=== PATIENT | female | born 1980 | race American Indian/Alaskan Native ===

== ENCOUNTER 2017-03-13 20:07 | Inpatient (IN) | payer OTHER ==
--- NOTE | 2017-03-13 20:51 | ED PDOC ---
Arrival/HPI - General Chief Complaint: Weakness/Neurological Deficit Time Seen by Provider: 03/13/17 20:40 Historian: Patient - History of Present Illness Narrative History of Present Illness (Text): 03/13/17 20:48 36 y/o female, pmh including heavy menstrual period for 1 year/hypothyroidism, nkda, send in by the pmd Dr. Chen for hypothryoidism and symptomatic anemia. Pt. stated that she gets heavy period for the past 1 year, following up with the obgyn which suggest supportive treatment, on the iron supplement but not compliance, last period about several days with 7 days straight of menstrual period. Pt. stated that she feels fatigue/tired and very sleepy, pmd is concerning about the thyroid panel as well. Pt. has no chest pain or shortness of breath, no night sweat, no numbness or tingling, no other medical or psychological complaints. Past Medical History - Provider Review Nursing Documentation Reviewed: Yes - Past History Past History: No Previous - Infectious Disease Hx of Infectious Diseases: None - Past Medical History Past Medical History: No Previous - Cardiac Hx Cardiac Disorders: No - Pulmonary Hx Respiratory Disorders: No - Neurological Hx Neurological Disorder: No - HEENT Hx HEENT Disorder: No - Renal Hx Renal Disorder: No - Endocrine/Metabolic Hx Endocrine Disorders: Yes (GOITER) Hx Hypothyroidism: Yes - Hematological/Oncological Hx Blood Disorders: Yes Hx Anemia: Yes (IRON INFUSIONS) - Integumentary Hx Dermatological Disorder: No - Musculoskeletal/Rheumatological Hx Musculoskeletal Disorders: No Hx Falls: No - Gastrointestinal Hx Gastrointestinal Disorders: Yes (ENDOSCOPOY 5-93-12-GASTRIC EROSION-LOST 5 LBS WITHIN ONE MONTH) - Genitourinary/Gynecological Hx Genitourinary Disorders: No - Psychiatric Hx Psychophysiologic Disorder: No Hx Anxiety: No Hx Bipolar Disorder: No Hx Depression: No Hx Emotional Abuse: No Hx Hallucinations: No Hx Panic Disorder: No Hx Post Traumatic Stress Disorder: No Hx Psychosis: No Hx Physical Abuse: No Hx Schizophrenia: No Hx Sexual Abuse: No Hx Substance Use: No - Anesthesia Hx Anesthesia Reactions: No Hx Malignant Hyperthermia: No - Suicidal Assessment Feels Threatened In Home Enviroment: No Family/Social History - Physician Review Nursing Documentation Reviewed: Yes Family/Social History: Unknown Family HX Smoking Status: Never Smoked Hx Alcohol Use: No Hx Substance Use: No Hx Substance Use Treatment: No Allergies/Home Meds Allergies/Adverse Reactions: Allergies No Known Allergies Allergy (Verified 11/17/14 14:19) Home Medications: Home Meds Medication Instructions Recorded Confirmed Levothyroxine Sodium 88 mcg PO QID 11/16/14 11/17/14 [Levothyroxine] Review of Systems - Review of Systems Constitutional: Fatigue. absent: Fevers Eyes: absent: Vision Changes ENT: absent: Hearing Changes Respiratory: absent: SOB, Cough Cardiovascular: absent: Chest Pain Gastrointestinal: absent: Abdominal Pain, Nausea, Vomiting Skin: absent: Rash, Pruritis Neurological: absent: Headache, Dizziness Psychiatric: absent: Anxiety, Depression Physical Exam Vital Signs Temp Pulse Resp BP Pulse Ox 03/14/17 00:08 98.0 F 67 17 116/72 98 03/13/17 23:57 67 17 116/72 98 03/13/17 21:33 98.3 F 78 17 108/77 98 - Systems Exam Head: Present: Atraumatic, Normocephalic Pupils: Present: PERRL Extroacular Muscles: Present: EOMI Conjunctiva: Present: Normal Mouth: Present: Moist Mucous Membranes Neck: Present: Normal Range of Motion Respiratory/Chest: Present: Clear to Auscultation, Good Air Exchange. No: Respiratory Distress, Accessory Muscle Use Cardiovascular: Present: Regular Rate and Rhythm, Normal S1, S2. No: Murmurs Abdomen: Present: Normal Bowel Sounds. No: Tenderness, Distention, Peritoneal Signs, Rebound, Guarding Back: Present: Normal Inspection Upper Extremity: Present: Normal Inspection. No: Cyanosis, Edema Lower Extremity: Present: Normal Inspection. No: Edema Neurological: Present: GCS=15, Speech Normal, Motor Func Grossly Intact, Gait Normal, Memory Normal Skin: Present: Warm, Dry, Normal Color. No: Rashes Psychiatric: Present: Alert, Oriented x 3, Normal Insight, Normal Concentration Medical Decision Making ED Course and Treatment: 03/13/17 20:51 -Labs/ua -type and screen -Chest xray -IVF -Observe and reassess 03/13/17 22:39 -Urine hcg negative -Labs are non-significant except hgb 7.1 and free T4. -Pt. didn't take her thyroid medication today and will give it to her. -Pt. declined blood transfusion, spoke to Dr. Chen about the case/labs and talk about patient decline transfusion, Dr. Chen suggest iron IV 100mg IV and will talk to the patient tomorrow, agreed to accept the service to his name which he will continue the care. -Dr. Ferrari is busy and dealing with critical pediatric case, will put in admission for him. -Stool provided by the patient and guaiac negative. -Pt. will be admitted to the med/surg floor. 03/13/17 23:47 -UA show no UTI - Lab Interpretations Lab Results: 03/13/17 21:03 03/13/17 21:03 Lab Results 03/13/17 21:38: Blood Type Confirm B POSITIVE 03/13/17 21:11: Blood Type B POSITIVE, Antibody Screen Negative, Crossmatch See Detail, BBK History Checked No verified bt 03/13/17 21:03: WBC 3.7 L, RBC 3.70, Hgb 7.1 L, Hct 25.4 L, MCV 68.6 L, MCH 19.2 L, MCHC 28.0 L, RDW 22.3 H, Plt Count 600 H, MPV 9.2, Gran % 44.4 L, Lymph % (Auto) 43.8 H, Coal % (Auto) 5.8, Eos % (Auto) 3.3, Baso % (Auto) 2.7, Gran # 1.62, Lymph # 1.6, Coal # 0.2, Eos # 0.1, Baso # 0.10 03/13/17 21:03: Free T4 0.30 L, TSH 3rd Generation 114.00 H 03/13/17 21:03: Sodium 141, Potassium 3.8, Chloride 106, Carbon Dioxide 26, Anion Gap 12, BUN 13, Creatinine 0.6 L, Est GFR ( Amer) > 60, Est GFR ( Non-Af Amer) > 60, Random Glucose 82, Calcium 9.4, Total Bilirubin 0.5, AST 27, ALT 19, Alkaline Phosphatase 57, Total Protein 8.0, Albumin 4.4, Globulin 3.6, Albumin/Globulin Ratio 1.2, Lipase 102 03/13/17 21:03: Urine Color Yellow, Urine Appearance Clear, Urine pH 6.0, Ur Specific Doland 1.025, Urine Protein Negative, Urine Glucose (UA) Negative, Urine Ketones Negative, Urine Blood Negative, Urine Nitrate Negative, Urine Bilirubin Negative, Urine Urobilinogen 1.0 H, Ur Leukocyte Esterase Negative I have reviewed the lab results: Yes - RAD Interpretation Radiology Orders: 03/13/17 20:47 CHEST PORTABLE [RAD] Stat no active disease Rn Digestive: Radiologist - Medication Orders Current Medication Orders: Discontinued Medications Acetaminophen (Tylenol 325mg Tab) 650 mg PO ONCE ONE Stop: 03/14/17 15:39 Last Admin: 03/14/17 21:12 Dose: 650 mg MAR Pain/Vitals Document 03/14/17 21:12 LVC (Rec: 03/14/17 21:13 LVC [id number]) Pain Reassessment Is This A Pain ReAssessment? No Sleep Is patient sleeping during reassessment? No Presence of Pain Presence of Pain No Pain Scale Used Pain Scale Used pre transf Vitals Temperature (97.6 F-99.6 F) 97.1 F Acetaminophen (Tylenol 325mg Tab) 650 mg PO Q4H PRN PRN Reason: Pain, Mild (1-3) Diphenhydramine HCl (Benadryl) 25 mg PO ONCE ONE Stop: 03/14/17 15:39 Last Admin: 03/14/17 21:12 Dose: 25 mg Ferrous Sulfate (Feosol) 324 mg PO DAILY KARL Hydrocortisone Sodium Succinate (Solu-Cortef) 100 mg IV ONCE ONE Stop: 03/14/17 15:39 Last Admin: 03/14/17 21:35 Dose: 100 mg eMAR Start Stop Document 03/14/17 21:35 PCO (Rec: 03/14/17 21:36 PCO [id number]) Intravenous Solution Start Date 03/14/17 Start Time 21:35 End Date 03/14/17 End time 22:40 Total Infusion Time 65 Sodium Chloride (Sodium Chloride 0.9%) 1,000 mls @ 100 mls/hr IV .Q10H KARL Last Admin: 03/13/17 21:09 Dose: 100 mls/hr eMAR Start Stop Document 03/13/17 21:09 IT (Rec: 03/13/17 21:09 IT [id number]) Intravenous Solution Start Date 03/13/17 Start Time 21:09 Iron Sucrose 100 mg/ Sodium (Chloride) 105 mls @ 210 mls/hr IVPB ONCE ONE Stop: 03/13/17 22:59 Last Admin: 03/13/17 23:31 Dose: 210 mls/hr eMAR Start Stop Document 03/13/17 23:31 IT (Rec: 03/13/17 23:31 IT [id number]) Intravenous Solution Start Date 03/13/17 Start Time 23:31 End Date 03/13/17 Iron Sucrose 100 mg/ Sodium (Chloride) 105 mls @ 210 mls/hr IVPB ONCE ONE Stop: 03/14/17 13:34 Last Admin: 03/14/17 14:15 Dose: 210 mls/hr eMAR Start Stop Document 03/14/17 14:15 DM (Rec: 03/14/17 14:15 [id number]) Intravenous Solution Start Date 03/14/17 Start Time 14:15 End Date 03/14/17 End time 15:15 Total Infusion Time 60 Levothyroxine Sodium (Synthroid) 88 mcg PO STAT STA Stop: 03/13/17 22:31 Last Admin: 03/13/17 23:31 Dose: 88 mcg Levothyroxine Sodium (Synthroid) 200 mcg IVP STAT STA Stop: 03/14/17 12:54 Last Admin: 03/14/17 14:21 Dose: 200 mcg IVP Administration Document 03/14/17 14:21 DM (Rec: 03/14/17 14:21 [id number]) Charges for Administration # of IVP Administrations 1 Levothyroxine Sodium (Synthroid) 100 mcg IVP DAILY KARL Stop: 03/17/17 11:00 Last Admin: 03/15/17 10:01 Dose: 100 mcg IVP Administration Document 03/15/17 10:01 DL (Rec: 03/15/17 10:01 [place] [id number][place] Charges for Administration # of IVP Administrations 1 Levothyroxine Sodium (Synthroid) 125 mcg PO ACB [facility] Pantoprazole Sodium (Protonix Inj) 40 mg IVP DAILY [facility] Last Admin: 03/15/17 10:01 Dose: 40 mg IVP Administration Document 03/15/17 10:01 DL (Rec: 03/15/17 10:01 DL [id number][place] Charges for Administration # of IVP Administrations 1 Pantoprazole Sodium (Protonix Ec Tab) 20 mg PO 0600 KARL Pneumococcal Polyvalent Vaccine (Pneumovax 23 Vaccine) 0.5 ml IM .ONCE ONE Stop: 03/14/17 03:56 - PA / HEAD MIXER / Resident Statement /DO has reviewed & agrees with the documentation as recorded. Disposition/Present on Arrival - Present on Arrival Any Indicators Present on Arrival: No History of DVT/PE: No History of Uncontrolled Diabetes: No Urinary Catheter: No History of Decub. Ulcer: No History Surgical Site Infection Following: None - Disposition Have Diagnosis and Disposition been Completed?: Yes Diagnosis: Symptomatic anemia, Hypothyroidism Disposition: HOSPITALIZED Disposition Time: 22:41 Patient Plan: Admission Condition: GUARDED
[2017-03-13] MEDS ORDERED: Sodium Chloride 0.9% 1,000 ML IV SCH (21:00)
[2017-03-13 21:26] LABS: BASO # 0.1 K/mm3 (0.0-2.0); BASO % 2.7 % (0.0-3.0); EOS # 0.1 (0.0-0.7); EOS % 3.3 % (1.5-5.0); GRAN # 1.62 (1.4-6.5); GRAN % 44.4 % (50.0-68.0); HEMATOCRIT 25.4 % (36.0-48.0); LYMPH # 1.6 (1.2-3.4); LYMPH % 43.8 % (22.0-35.0); MEAN CELL VOLUME 68.6 fl (80.0-105.0); MEAN CORPUSCULAR HEMOGLOBIN 19.2 pg (25.0-35.0); MEAN PLATELET VOLUME 9.2 fl (7.0-11.0); MONO # 0.2 (0.1-0.6); MONO % 5.8 % (1.0-6.0); RED CELL DISTRIBUTION WIDTH 22.3 % (11.5-14.5); URINE BILIRUBIN NEGATIVE (NEGATIVE); URINE BLOOD NEGATIVE (NEGATIVE); URINE GLUCOSE (UA) NEGATIVE (NEGATIVE); URINE KETONE NEGATIVE (NEGATIVE); URINE LEUKOCYTE ESTERASE NEGATIVE Leu/uL (NEGATIVE); URINE PROTEIN NEGATIVE mg/dL (<30 mg/dL); WHITE BLOOD COUNT 3.7 10^3/ul (4.5-11.0)
[2017-03-13 21:28] LABS: URINE APPEARANCE CLEAR (CLEAR); URINE COLOR YELLOW (YELLOW)
[2017-03-13 21:39] LABS: BLOOD UREA NITROGEN 13 mg/dL (7-21); CARBON DIOXIDE 26 mmol/L (21-33); CHLORIDE 106 mmol/L (98-107); GFR AFRICAN-AMERICAN > 60; GLUCOSE,RANDOM 82 mg/dL (70-110); POTASSIUM 3.8 mmol/L (3.6-5.0); SODIUM 141 mmol/L (132-148)
[2017-03-13 21:40] LABS: ALB/GLOB RATIO 1.2 (1.1-1.8); ALKALINE PHOSPHATASE 57 U/L (38-126); ALT/SGPT 19 U/L (7-56); AST/SGOT 27 U/L (14-36); BILIRUBIN,TOTAL 0.5 mg/dL (0.2-1.3); CALCIUM 9.4 mg/dL (8.4-10.5); LIPASE 102 U/L (23-300)
[2017-03-13 21:46] LABS: FREE T4 0.3 ng/dL (0.78-2.19)
[2017-03-13] MEDS ORDERED: Levothyroxine 88 MCG TAB PO STA (22:30)
[2017-03-14 03:55] VITALS: BMI 20.7
[2017-03-14] MEDS ORDERED: Pneumococcal 23-Valent Vaccine IM ONE (03:55)
[2017-03-14] MEDS ORDERED: Influenza Vaccine 60 mcg/0.5 mL SYR (4YR UP) IM ONE (03:55)
--- NOTE | 2017-03-14 09:29 | RAD ---
HISTORY: medical clearance COMPARISON: 11/17/2014 FINDINGS: LUNGS: No active pulmonary disease. PLEURA: No significant pleural effusion identified, no pneumothorax apparent. CARDIOVASCULAR: Normal. OSSEOUS STRUCTURES: No significant abnormalities. VISUALIZED UPPER ABDOMEN: Normal. OTHER FINDINGS: None. IMPRESSION: No active disease.
[2017-03-14 11:54] LABS: MEAN CELL VOLUME 68.5 fl (80.0-105.0); MEAN CORPUSCULAR HEMOGLOBIN 19.4 pg (25.0-35.0); MEAN CORPUSCULAR HGB CONC 28.3 g/dl (31.0-37.0)
[2017-03-14 11:56] LABS: HEMATOCRIT 23.7 % (36.0-48.0); WHITE BLOOD COUNT 2.9 10^3/ul (4.5-11.0)
[2017-03-14 12:03] LABS: EOS % 2.8 % (1.5-5.0); GRAN % 53.1 % (50.0-68.0); LYMPH % 35.1 % (22.0-35.0); MONO % 5.9 % (1.0-6.0)
[2017-03-14 12:04] LABS: BASO # 0.09 K/mm3 (0.0-2.0); BASO % 3.1 % (0.0-3.0); EOS # 0.1 (0.0-0.7); GRAN # 1.53 (1.4-6.5); MONO # 0.2 (0.1-0.6)
[2017-03-14 12:25] LABS: ALB/GLOB RATIO 1.2 (1.1-1.8); ALKALINE PHOSPHATASE 41 U/L (38-126); ALT/SGPT 19 U/L (7-56); AST/SGOT 19 U/L (14-36); BILIRUBIN,TOTAL 0.3 mg/dL (0.2-1.3); BLOOD UREA NITROGEN 7 mg/dL (7-21); CALCIUM 9.1 mg/dL (8.4-10.5); CARBON DIOXIDE 26 mmol/L (21-33); CHLORIDE 107 mmol/L (98-107); GFR AFRICAN-AMERICAN > 60; GLUCOSE,RANDOM 79 mg/dL (70-110); POTASSIUM 3.7 mmol/L (3.6-5.0); SODIUM 141 mmol/L (132-148); TOTAL PROTEIN 6.8 g/dL (5.8-8.3)
[2017-03-14] MEDS ORDERED: Levothyroxine 100 mcg (0.1 mg) Inj IVP STA (12:53)
[2017-03-14] MEDS ORDERED: Sodium Chloride 0.9% 1,000 ML IV SCH (15:39)
--- NOTE | 2017-03-14 16:41 | CON ---
DATE: 03/14/[address] [facility] consult on the medical floor. For Dr. Renteria. CHIEF COMPLAINT: Severe anemia. HISTORY OF PRESENT ILLNESS: The patient is a 36-year-old female, admitted via the emergency room for significant anemic indices with fatigue, sleepiness, feeling tired for the past few months. This patient is known to have heavy menstrual cycle, last period was approximately 2 weeks prior, lasts 7 days with a heavy flow. Unfortunately, she is not compliant with recommendations for RENT AND MISCELLANEOUS REMITTANCE CLERK eval; however, she also denies taking any mediations at this point despite recommendations for her to continue on Synthroid as she has had treatment for hyperthyroidism in the past and was admitted for the similar problem back in 2013, one was referred to that report at that time with also low white blood cell count then. Her TSH then was 99.4. Today's TSH is 114. Dr. Syl Laguna, office services associate has already stated the patient on replacement of her thyroid as indicated. However, her hemoglobin today is 6.7, yesterday being 7.1, after hydration it had dropped with the patient initially refusing transfusion. However, her mother is there now with explanation of the need for replenishment as soon as possible so that the oxygen carrying capacity of the blood may be restored so that we may prevent possible complicating factors such as stroke or heart attack. We will also put oxygen on now for the patient until her values are improved and recommend bedrest until the transfusion is completed after she was convinced that it was medically indicated for hemoglobin below 8 after the patient is symptomatic as she is now. The patient has received IV Venofer 100 mg given yesterday, 100 mg given today and we will discontinue this for now as per Dr. Renteria. Otherwise, the patient is in no acute distress. PAST MEDICAL HISTORY: Significant for hypothyroidism, treatment with Dr. Garcia in 2013 with Synthroid to be continued which unfortunately has discontinued. With this, the patient also has history of menometrorrhagia with no followup with gynecologists as above mentioned. Otherwise, she denies any other past medical history of significance. MEDIATIONS: Denied taking any medication despite thyroid replacement medication recommended. FAMILY HISTORY AND SOCIAL HISTORY: She denies alcohol, tobacco use, who is employed at [employer]. The patient now reports that she does have children that she take care of. REVIEW OF SYSTEMS: The 12-point review of systems was done, which was negative to questioning except as for items mentioned in the history of present illness. OBJECTIVE PHYSICAL EXAMINATION: VITAL SIGNS: Temperature 98.9, pulse 76, respirations 20, blood pressure 103/61, pulse ox 98%. HEENT: Unremarkable. NECK: Supple. HEART: Regular rate. LUNGS: Clear. ABDOMEN: Soft, nontender. EXTREMITIES: No edema. SKIN: Warm and dry. NEUROLOGIC: Awake, alert and oriented x3. LABORATORY DATA: The patient's labs were done. Yesterday's labs showed a white blood cell count of 3.7 with repeated at 2.9. Hemoglobin was 7.1 yesterday, today is 6.7 with a platelet count of 600,000, 560,000 today. Her chem metabolic panel was within normal range yesterday except for TSH of 114, free T4 of 0.3, otherwise normal chem metabolic panel. The patient did have a urinalysis done, it was negative for blood sugar, protein. It should be noted that a urine test was ordered for; however, I do not see the results of it here. Physician's executive assistant to president, Zaida comments on his notes that the urine hCG was negative on 03/13/2017. ASSESSMENT: The assessment for this patient is severe anemia secondary to menometrorrhagia? Rule out gastrointestinal bleed. Noncompliance, severe hypothyroidism secondary to treatment for hyperthyroidism. PLAN: The plan for this patient after the conservation with Dr. Renterai and after convincing the patient with family present that we would recommend transfusion for her. We will discontinue the Venofer for now. Continue her thyroid medication as per Dr. Syl Laguna along with protection for gastrointestinal prophylaxis with Protonix and await a consult with Dr. Brumfield for her gastrointestinal evaluation to rule out a source of gastrointestinal bleeding. This is a complex patient with a comprehensive necessary of medical evaluation and visit complete in excess of 1 hour time spent [id number] with the patient. Alfred Vargas MD
--- NOTE | 2017-03-14 18:32 | US ---
HISTORY: anemia COMPARISON: 11/18/2014 TECHNIQUE: Sonographic evaluation of the abdomen. FINDINGS: LIVER: Measures 13.2 cm. Patent portal vein. Portal venous flow: Hepatopetal. Unremarkeable echogenicity of the liver parenchyma. No mass. No intrahepatic bile duct dilatation. GALLBLADDER: Unremarkable. No gallstones. COMMON BILE DUCT: Measures 5.3 mm. No stones. No dilatation. PANCREAS: Unremarkable as visualized. No mass. No ductal dilatation. RIGHT KIDNEY: Measures 4.4 x 11.4cm. Normal echogenicity. No calculus, mass, or hydronephrosis. LEFT KIDNEY: Measures 6.1 x 10.2cm. Normal echogenicity. No calculus, mass, or hydronephrosis. SPLEEN: Normal in size and contour. No mass. AORTA: No aneurysmal dilatation. IVC: Unremarkable. OTHER FINDINGS: None. IMPRESSION: Unremarkable abdominal sonogram.No significant interval change compared to the prior examination(s).
--- NOTE | 2017-03-14 18:36 | US ---
HISTORY: Anemia. Menstrual status: LMP 03/03/2017. Menstrual cycles are regular COMPARISON: None available. TECHNIQUE: Transvaginal only. Real -time technique with 2D, duplex and color Doppler FINDINGS: UTERUS: Measures 5.5 x 5.6 x 11.8 cm. Normal in size and appearance. Location of fibroid and size: Fundal 3.9 x 4.3 x 4.9 slightly pedunculated ENDOMETRIUM: Measures 9.1 mm in diameter. No ultrasound findings to suggest gestational sac, fluid, debris, mass or polyp or other pathologic process within the endometrium. CERVIX: No cervical abnormality identified.Incidental finding: Nabothian cysts RIGHT OVARY: Measures 1.8 x 2.6 x 2.6 cm. No solid mass. Normal flow. LEFT OVARY: Measures 2.7 x 3.1 x 3.1 cm. No solid mass. Normal flow. Simple cyst 2.1 x 1.3 x 2.3 cm. Additional Multiple subcentimeter follicles. FREE FLUID: No significant free fluid noted. OTHER FINDINGS: None. IMPRESSION: No significant or acute findings to account for/ related to the clinical presentation. Additional benign and/or incidental findings described above.
--- NOTE | 2017-03-15 00:13 | CON ---
DATE: Room 568. SUBJECTIVE: This is a 36-year-old female with known history of hypothyroidism and marked menorrhagia with supervening marked anemia and is now undergoing hematologic workup and management and is also being referred for endocrine evaluation because of marked hypothyroidism. PAST MEDICAL HISTORY: History of hypothyroidism, currently on levothyroxine, taking 88 mcg daily as noted. History of chronic anemia related to marked menorrhagia for almost a year now as noted. She was on iron medications which she has taken infrequently as noted. FAMILY HISTORY: Positive for hypertension and heart disease. No known thyroid endocrinopathy. SOCIAL HISTORY: The patient has a supportive family. No known substance use. Admits to marked menorrhagia with lower pelvic pain and cramping as noted. REVIEW OF SYSTEMS: Admits to generalized body weakness with progressive bouts of dizziness and lightheadedness with near syncopal episodes worse over the last week or so prior to admission. Also admits to bifrontal headaches and generalized body malaise with increasing hypersomnolence and lethargy as noted. No chest pains, but admits to progressive shortness of breath, especially on exertion with occasional paroxysmal nocturnal dyspnea. Her oral intake has been variable with nausea, dyspepsia, and vague upper abdominal pains with habitual constipation as noted. PHYSICAL EXAMINATION: GENERAL: This is an average built female in no apparent distress. VITAL SIGNS: The blood pressure 130/80, pulse of 60 beats per minute and regular, temperature 98, respirations 20. Height is 5 feet 5 inches, weight is 125 pounds. HEENT: Head, normocephalic. Eyes, anicteric with pink conjunctivae. Funduscopy not possible at this time. Ears, nose, and throat otherwise normal. NECK: Supple. Thyroid gland is normal in size. No carotid bruits or any cervical adenopathy. CARDIOPULMONARY: Some adynamic precordium. S1 and S2 are slow and regular. LUNGS: Clear to auscultation. ABDOMEN: Flat, soft with positive bowel sounds. EXTREMITIES: No peripheral edema. Pulses are +2 bilaterally. LABORATORY DATA: Her chemistry showed a free T4 of 0.301 and TSH of 114.00. Her CMP showed a BUN of 7, sodium 141, potassium 3.7, chloride 107, CO2 26, glucose 79, and creatinine 0.6. ASSESSMENT: This is a 36-year-old female with marked hypothyroidism both historically, clinically, and biochemically, presenting here with near myxedema and supervening marked anemia related to persistent menorrhagia, also precipitated by the marked hypothyroidism as noted thereof. With a hemoglobin of 6 g, she clearly has symptomatic anemia with constitutional manifestations of also neuroglycopenic and near syncopal episodes related thereof to the aforementioned. PLAN OF MANAGEMENT: As discussed with the patient and staff, we will give her right away a levothyroxine dose of 200 mcg IV push stat now followed by daily IV or parenteral levothyroxine dosing of 100 mcg IV once daily for 3 days. Because of the marked near myxedema and expected marked mucosal edema in the gastric mucosa, the patient would not be able to absorb the oral thyroid medications and would need parenteral supplementation or replacement at this time. She will be receiving levothyroxine 100 mcg IV push daily for the next 3 days, and we will switch her over to oral preparations as indicated. A thyroid peroxidase and thyroglobulin antibody will be sent out which will confirm or indicate the presence of underlying thyroid autoimmunity. We will clearly be giving a higher dose of the oral levothyroxine as indicated over the next day or so. We will follow the patient. Syl Laguna MD
--- NOTE | 2017-03-15 05:24 | HP ---
DATE: 03/14/2017 REASON FOR ADMISSION: Severe anemia, severe hyperthyroidism. HISTORY OF PRESENT ILLNESS: A 36-year-old female who has a history of hypothyroidism and chronic anemia. Patient's noncompliant was office visits, she came in feeling tied, weak and found to have her hemoglobin is in the 7 range and her TSH in the 50s range. Patient also have not been taking her iron pills or her steroid medicines for the last 2 to 3 months. Patient was systematic was weak and tied was advised to go to the ER for further evaluation and treatment. PAST MEDICAL HISTORY: As I mentioned above; she has history of anemia, hypothyroidism, heavy menses, noncompliance. Does not follow her gynecology or her medical doctor. ALLERGIES: NO KNOWN ALLERGIES. SOCIAL HISTORY: She has two children. FAMILY HISTORY: Noncontributory. MEDICATIONS: Supposedly iron and levothyroxine 88. REVIEW OF SYSTEMS: As in the present illness, menorrhagia, she has heavy menses and weakness. PHYSICAL EXAMINATION: VITAL SIGNS: On admission; her temperature 98.3, heart rate 78, blood pressure 108/77, respirations 17 and saturating is 98% on room air. HEAD AND NECK: Normal. No JVD. No thyromegaly. CHEST: Clear, good air entry. CARDIAC: First sound and second sound normal. ABDOMEN: Soft and nontender. EXTREMITIES: No edema. NEUROLOGIC: Normal. LABORATORY DATA: Study showed white count 2.9, hemoglobin 6.7, hematocrit 23.7, and platelets 560. Chemistry: Sodium 141, potassium 3.7, chloride 107, bicarb 26, BUN 7, creatinine 0.6. Liver function test is normal. Her TSH came back 114, her free T4 came back low 0.30. Patient also had a urine test which was normal. IMPRESSION AND PLAN: 1. Severe iron deficiency anemia, we will get a hematology consult Dr. Renteria, probably the patient will need two units of blood transfusion to improve her symptoms. We will continue iron IV to replenish her iron deficiency anemia. Patient advised to continue on pills p.o. as outpatient for 6 months and discussed with the patient's mother and father, the parents of the patient and the importance of compliance with medications. 2. Hypothyroidism. Continue IV levothyroxine. We will follow up with Dr. Syl Laguna, about the endocrine evaluation and consideration of therapy. 3. Patient has anemia, we will get transvaginal ultrasound. We will get abdominal ultrasound. Continue Protonix IV and gastrointestinal consult will see the patient and we will follow up clinically. Agustin Chen MD
[2017-03-15 06:17] VITALS: RESP 18
[2017-03-15 07:21] LABS: BASO # 0.03 K/mm3 (0.0-2.0); BASO % 0.5 % (0.0-3.0); GRAN # 5.58 (1.4-6.5); GRAN % 91.6 % (50.0-68.0); HEMATOCRIT 32.6 % (36.0-48.0); LYMPH # 0.4 (1.2-3.4); LYMPH % 7.1 % (22.0-35.0); MEAN CELL VOLUME 73.1 fl (80.0-105.0); MEAN CORPUSCULAR HEMOGLOBIN 22.2 pg (25.0-35.0); MEAN CORPUSCULAR HGB CONC 30.4 g/dl (31.0-37.0); MEAN PLATELET VOLUME 9.5 fl (7.0-11.0); MONO # 0.1 (0.1-0.6); MONO % 0.8 % (1.0-6.0); PLATELET COUNT 535 10^3/uL (120.0-450.0); RED CELL DISTRIBUTION WIDTH 23.4 % (11.5-14.5); WHITE BLOOD COUNT 6.1 10^3/ul (4.5-11.0)
[2017-03-15 08:01] LABS: ALB/GLOB RATIO 1.2 (1.1-1.8); ALKALINE PHOSPHATASE 48 U/L (38-126); ALT/SGPT 16 U/L (7-56); AST/SGOT 20 U/L (14-36); BILIRUBIN,TOTAL 1.2 mg/dL (0.2-1.3); BLOOD UREA NITROGEN 9 mg/dL (7-21); CALCIUM 9.4 mg/dL (8.4-10.5); CARBON DIOXIDE 25 mmol/L (21-33); CHLORIDE 107 mmol/L (98-107); FREE T4 0.64 ng/dL (0.78-2.19); GFR AFRICAN-AMERICAN > 60; GLUCOSE,RANDOM 113 mg/dL (70-110); POTASSIUM 3.7 mmol/L (3.6-5.0); SODIUM 140 mmol/L (132-148); T4 5.8 ug/dL (5.5-11.0); TOTAL PROTEIN 7.3 g/dL (5.8-8.3)
[2017-03-15 08:02] LABS: THYROID STIMULATING HORMONE 18.7 mIU/mL (0.46-4.68)
[2017-03-15 09:35] LABS: NEUTROPHIL 92 % (50.0-70.0); PLATELET ESTIMATE HIGH (NORMAL)
[2017-03-15 09:36] LABS: ANISOCYTOSIS 1+; HYPOCHROMIA 1+; LARGE PLATELETS PRESENT
[2017-03-15] MEDS ORDERED: Levothyroxine 100 mcg (0.1 mg) Inj IVP SCH (10:00)
--- NOTE | 2017-03-15 10:22 | CP.PCM.CON ---
<Marbella Tovar - Last Filed: 03/15/17 10:25> History of Present Illness - History of Present Illness History of Present Illness: GI Fellow PGY4 Consult Note This is a 36 year old female with h/o hypothyroidism, anemia, menorrhagia presenting in with complaints of fatigue and weakness. Pt states that she gets heavy menses for the past 1 year and saw an obgyn one year ago which suggest supportive treatment with oral contraceptive pill and iron supplement but she has not been complaint with medical therpay. Pt LMP was 03/03/17 nd reports very heavy periods for 7 days. Pt denies NSAID use, denies abdominal pain, melena or hematochezia. Pt was found to have an Hgb 6.7 and was transfused 2U PRBCs. She had an EGD in 2014 with erosive gastritis, negative for H.pylori, no colonoscopy. ROS: A 12pt was negative except as above. PmHx: As stated in HPI PsHx: None SHx: denies tobacco, etoh or drugs FHx: denies hx of colon cancer Past Patient History - Infectious Disease Hx of Infectious Diseases: None - Past Social History Smoking Status: Never Smoked - CARDIAC Hx Cardiac Disorders: No - PULMONARY Hx Respiratory Disorders: No - NEUROLOGICAL Hx Neurological Disorder: No - HEENT Hx HEENT Problems: No - RENAL Hx Chronic Kidney Disease: No - ENDOCRINE/METABOLIC Hx Endocrine Disorders: Yes (GOITER) Hx Hypothyroidism: Yes - HEMATOLOGICAL/ONCOLOGICAL Hx Blood Disorders: Yes Hx Anemia: Yes (IRON INFUSIONS) - INTEGUMENTARY Hx Dermatological Problems: No - MUSCULOSKELETAL/RHEUMATOLOGICAL Hx Musculoskeletal Disorders: No Hx Falls: No - GASTROINTESTINAL Hx Gastrointestinal Disorders: Yes (ENDOSCOPOY 7-67-22-GASTRIC EROSION-LOST 5 LBS WITHIN ONE MONTH) - GENITOURINARY/GYNECOLOGICAL Hx Genitourinary Disorders: No - PSYCHIATRIC Hx Psychophysiologic Disorder: No Hx Anxiety: No Hx Bipolar Disorder: No Hx Depression: No Hx Emotional Abuse: No Hx Hallucinations: No Hx Panic Symptoms: No Hx Post Traumatic Stress Disorder: No Hx Psychosis: No Hx Physical Abuse: No Hx Schizophrenia: No Hx Sexual Abuse: No Hx Substance Use: No - SURGICAL HISTORY Hx Surgeries: Yes (c sectionx2) - ANESTHESIA Hx Anesthesia Reactions: No Hx Malignant Hyperthermia: No Meds Allergies/Adverse Reactions: Allergies Allergy/AdvReac Type Severity Reaction Status Date / Time No Known Allergies Allergy Verified 11/17/14 14:19 - Medications Medications: Current Medications Sodium Chloride (Sodium Chloride 0.9%) 1,000 mls @ 50 mls/hr IV .Q20H [facility] Levothyroxine Sodium (Synthroid) 100 mcg IVP DAILY [facility] Stop: 03/17/17 11:00 Last Admin: 03/15/17 10:01 Dose: 100 mcg Pantoprazole Sodium (Protonix Inj) 40 mg IVP DAILY [facility] Last Admin: 03/15/17 10:01 Dose: 40 mg Physical Exam - Constitutional Appears: Non-toxic, No Acute Distress - Head Exam Head Exam: ATRAUMATIC, NORMAL INSPECTION, NORMOCEPHALIC - Eye Exam Eye Exam: EOMI, Normal appearance, PERRL Pupil Exam: NORMAL ACCOMODATION, PERRL - ENT Exam ENT Exam: Mucous Membranes Moist, Normal Exam - Neck Exam Neck exam: Positive for: Normal Inspection - Respiratory Exam Respiratory Exam: Clear to Auscultation Bilateral, NORMAL BREATHING PATTERN - Cardiovascular Exam Cardiovascular Exam: REGULAR RHYTHM - GI/Abdominal Exam GI & Abdominal Exam: Normal Bowel Sounds, Soft. absent: Diminished Bowel Sounds , Distended, Guarding, Organomegaly, Tenderness - Rectal Exam Rectal Exam: NORMAL INSPECTION Additional comments: brown stool - Extremities Exam Extremities exam: Positive for: normal inspection - Back Exam Back exam: NORMAL INSPECTION - Neurological Exam Neurological exam: Alert, Oriented x3 - Skin Skin Exam: Dry, Intact, Normal Color, Warm Results - Vital Signs Recent Vital Signs: Last Vital Signs Temp 98.4 F 03/15/17 07:30 Pulse 76 03/15/17 07:30 Resp 18 03/15/17 07:30 BP 93/55 L 03/15/17 07:30 Pulse Ox 97 03/15/17 07:30 - Labs Result Diagrams: 03/15/17 06:45 03/15/17 06:45 Labs: Laboratory Results - last 24 hr 03/14/17 03/14/17 03/15/17 11:40 11:40 06:45 WBC 2.9 L* D RBC 3.46 L Hgb 6.7 L* Hct 23.7 L MCV 68.5 L MCH 19.4 L MCHC 28.3 L RDW 22.0 H Plt Count 560 H MPV 9.0 Gran % 53.1 Lymph % (Auto) 35.1 H Hudspeth % (Auto) 5.9 Eos % (Auto) 2.8 Baso % (Auto) 3.1 H Gran # 1.53 Lymph # 1.0 L Hudspeth # 0.2 Eos # 0.1 Baso # 0.09 Neutrophils % (Manual) Lymphocytes % (Manual) Monocytes % (Manual) Platelet Evaluation Large Platelets Hypochromasia Anisocytosis (manual) Sodium 141 140 Potassium 3.7 3.7 Chloride 107 107 Carbon Dioxide 26 25 Anion Gap 11 12 BUN 7 9 Creatinine 0.6 L 0.7 Est GFR ( Amer) > 60 > 60 Est GFR (Non-Af Amer) > 60 > 60 POC Glucose (mg/dL) Random Glucose 79 113 H Calcium 9.1 9.4 Total Bilirubin 0.3 1.2 AST 19 20 ALT 19 16 Alkaline Phosphatase 41 48 Total Protein 6.8 7.3 Albumin 3.7 4.0 Globulin 3.1 3.3 Albumin/Globulin Ratio 1.2 1.2 Free T4 Thyroxine (T4) TSH 3rd Generation 03/15/17 03/15/17 03/15/17 06:45 06:45 09:00 WBC 6.1 D RBC 4.46 Hgb 9.9 L D Hct 32.6 L MCV 73.1 L D MCH 22.2 L MCHC 30.4 L RDW 23.4 H Plt Count 535 H MPV 9.5 Gran % 91.6 H Lymph % (Auto) 7.1 L Hudspeth % (Auto) 0.8 L Eos % (Auto) 0.0 L Baso % (Auto) 0.5 Gran # 5.58 Lymph # 0.4 L Hudspeth # 0.1 Eos # 0.0 Baso # 0.03 Neutrophils % (Manual) 92 H Lymphocytes % (Manual) 7 L Monocytes % (Manual) 1 Platelet Evaluation High Large Platelets Present Hypochromasia 1+ Anisocytosis (manual) 1+ Sodium Potassium Chloride Carbon Dioxide Anion Gap BUN Creatinine Est GFR ( Amer) Est GFR (Non-Af Amer) POC Glucose (mg/dL) 114 H Random Glucose Calcium Total Bilirubin AST ALT Alkaline Phosphatase Total Protein Albumin Globulin Albumin/Globulin Ratio Free T4 0.64 L Thyroxine (T4) 5.8 TSH 3rd Generation 18.70 H Assessment & Plan - Assessment and Plan (Free Text) Assessment: This is a 36yF presenting with fatigue and weakness. 1. Symptomatic Anemia 2. Menorrhagia 3. Hx of erosive gastritis Plan: -Continue supportive care with IVF hydration -No active GI bleeding, rectal exam negative, hemodynamically stable -Monito H/H and transfuse as needed, s/p 2U PRBCs Hgb 9.9 from 6.7 -Anemia likely from Menorrhagi and uterine fibroid on transvaginal US, recommend Intelligence Manager evaluation -No plan for endoscopic evaluation at this time -Recommend outpt EGD/colonoscopy to r/o underlying GI etiology for anemia -Please call with any questions or concerns <Gee Brumfield - Last Filed: 03/15/17 11:38> Meds - Medications Medications: Current Medications Sodium Chloride (Sodium Chloride 0.9%) 1,000 mls @ 50 mls/hr IV .Q20H [facility] Levothyroxine Sodium (Synthroid) 125 mcg PO ACB [facility] Pantoprazole Sodium (Protonix Inj) 40 mg IVP DAILY [facility] Last Admin: 03/15/17 10:01 Dose: 40 mg Results - Vital Signs Recent Vital Signs: Last Vital Signs Temp 98.4 F 03/15/17 07:30 Pulse 76 03/15/17 07:30 Resp 18 03/15/17 07:30 BP 93/55 L 03/15/17 07:30 Pulse Ox 97 03/15/17 07:30 - Labs Result Diagrams: 03/15/17 06:45 03/15/17 06:45 Labs: Laboratory Results - last 24 hr 03/14/17 03/14/17 03/15/17 11:40 11:40 06:45 WBC 2.9 L* D RBC 3.46 L Hgb 6.7 L* Hct 23.7 L MCV 68.5 L MCH 19.4 L MCHC 28.3 L RDW 22.0 H Plt Count 560 H MPV 9.0 Gran % 53.1 Lymph % (Auto) 35.1 H Hudspeth % (Auto) 5.9 Eos % (Auto) 2.8 Baso % (Auto) 3.1 H Gran # 1.53 Lymph # 1.0 L Hudspeth # 0.2 Eos # 0.1 Baso # 0.09 Neutrophils % (Manual) Lymphocytes % (Manual) Monocytes % (Manual) Platelet Evaluation Large Platelets Hypochromasia Anisocytosis (manual) Sodium 141 140 Potassium 3.7 3.7 Chloride 107 107 Carbon Dioxide 26 25 Anion Gap 11 12 BUN 7 9 Creatinine 0.6 L 0.7 Est GFR ( Amer) > 60 > 60 Est GFR (Non-Af Amer) > 60 > 60 POC Glucose (mg/dL) Random Glucose 79 113 H Calcium 9.1 9.4 Total Bilirubin 0.3 1.2 AST 19 20 ALT 19 16 Alkaline Phosphatase 41 48 Total Protein 6.8 7.3 Albumin 3.7 4.0 Globulin 3.1 3.3 Albumin/Globulin Ratio 1.2 1.2 Free T4 Thyroxine (T4) TSH 3rd Generation 03/15/17 03/15/17 03/15/17 06:45 06:45 09:00 WBC 6.1 D RBC 4.46 Hgb 9.9 L D Hct 32.6 L MCV 73.1 L D MCH 22.2 L MCHC 30.4 L RDW 23.4 H Plt Count 535 H MPV 9.5 Gran % 91.6 H Lymph % (Auto) 7.1 L Hudspeth % (Auto) 0.8 L Eos % (Auto) 0.0 L Baso % (Auto) 0.5 Gran # 5.58 Lymph # 0.4 L Hudspeth # 0.1 Eos # 0.0 Baso # 0.03 Neutrophils % (Manual) 92 H Lymphocytes % (Manual) 7 L Monocytes % (Manual) 1 Platelet Evaluation High Large Platelets Present Hypochromasia 1+ Anisocytosis (manual) 1+ Sodium Potassium Chloride Carbon Dioxide Anion Gap BUN Creatinine Est GFR ( Amer) Est GFR (Non-Af Amer) POC Glucose (mg/dL) 114 H Random Glucose Calcium Total Bilirubin AST ALT Alkaline Phosphatase Total Protein Albumin Globulin Albumin/Globulin Ratio Free T4 0.64 L Thyroxine (T4) 5.8 TSH 3rd Generation 18.70 H Attending/Attestation - Attestation I have personally seen and examined this patient.: Yes I have fully participated in the care of the patient.: Yes I have reviewed all pertinent clinical information: Yes Notes (Text): 03/15/17 11:37 36 year old female who is admitted with symptomatic anemia due to menorrhagia, now improved after transfusion. Recommend outpatient colonoscopy due to iron deficiency anemia, although its likely Intelligence Manager etiology. Had endoscopy previously with just erosive gastritis. Diet as tolerated. Ok for discharge from GI standpoint.
--- NOTE | 2017-03-15 12:37 | PN ---
DATE: ENDOCRINOLOGY FOLLOWUP NOTE LOCATION: Room 568. 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 She has been receiving parenteral levothyroxine replacement therapy as ordered. Her latest chemistry showed a BUN of 9, sodium 140, potassium 3.7, chloride 107, CO2 of 25, glucose 113, and creatinine 0.7. Her latest repeat thyroid studies have improved remarkably overnight as noted with the initiation of parenteral or IV levothyroxine medications as given. The latest thyroid study showed a T4 of 5.8 with a free T4 of 0.64 and a TSH of 18.70. So at this time, we will actually discontinue now the IV levothyroxine and switch her over to oral levothyroxine started tomorrow morning at 125 mcg once daily as ordered. We will titrate incrementally as indicated to optimize metabolic control. We will follow and advise accordingly. Syl Laguna MD
[2017-03-15 16:23] VITALS: BP 115/76; PULSE 87; TEMP 97.7; O2SAT 99
--- NOTE | 2017-03-15 17:02 | PN ---
DATE: 03/15/2017 This is [facility]'s hospital visit on the medical floor. For Dr. Renteria. SUBJECTIVE: The patient is a 36-year-old female, seen sitting up in bed, admitted for severe anemia probably secondary to menstrual issues with the patient to having a history of noncompliance. She also is significantly hypothyroid with her replenishment now by Dr. Syl Laguna with good effect. Also the patient noncompliant in that respect that she reportedly does not taking any medications at all including Synthroid, which is recommended for her after her hyperthyroidism was corrected with radiation? in the past. With this, she is in no acute distress, status post transfusion after her mother is at the bedside and the patient was convinced that transfusion was indicated for her significantly low hemoglobin of 6.7 with the patient now feeling much better, in no acute distress. OBJECTIVE/PHYSICAL EXAMINATION: VITAL SIGNS: Temperature 98.4, pulse 76, blood pressure 93/55, respirations 18, and pulse oximetry 97%. HEENT: Unremarkable. NECK: Supple. HEART: Regular rate. LUNGS: Clear. ABDOMEN: Soft, nontender. EXTREMITIES: No edema. SKIN: Warm, dry, and clear. NEUROLOGIC: Awake, alert, and oriented x3. LABORATORY DATA: The patient's labs were done. White blood cell count of 6.1, hemoglobin of 9.9 up from 6.7 yesterday after transfusion, hematocrit of 32.6, platelet count of 535,000 with a chem metabolic panel completely within normal limits except for TSH today of 18.7, yesterday it was 114. The patient did have a transvaginal ultrasound done yesterday, it was right has no significant for acute findings and cannot further related to clinical presentation, findings. Abdominal ultrasound was also done yesterday that was right has unremarkable abdominal sonogram, no significant interval change compared to prior examinations. The patient did have a gastrointestinal evaluation with Dr. Chen. Recommendation for GI workup as an outpatient as the patient is now significantly improved. ASSESSMENT: For this patient is symptomatic anemia, severe hypothyroidism, menometrorrhagia, noncompliance, history of hyperthyroidism, status post treatment. PLAN: For this patient after conversation with Dr. Renteria is to stop her IV fluids. We will ask for Gynecology consult to be done as per the patient's prior doctor as an outpatient. 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 Her anemia is not corrected with oral iron now started. Her hypothyroidism is to be correct as per Dr. Syl Laguna with continuation of Synthroid. If the patient is known to be noncompliant, it was reinforced with her that needs to follow up for these medical issues. We will monitor clinically with labs. Prognosis for this patient is guarded. Other followup as per Dr. Agustin Chen as indicated. Alfred Vargas MD
[2017-03-16] MEDS ORDERED: Pantoprazole 20 mg EC Tab PO SCH (06:00)
[2017-03-16] MEDS ORDERED: Levothyroxine 125 MCG TAB PO SCH (07:30)
--- NOTE | 2017-03-17 06:05 | DS ---
HISTORY OF PRESENT ILLNESS: A 36-year-old female found to be anemic in the range of 7 or below and was very symptomatic, feeling weak, tired. She also noncompliant patient with her medications and office visits. Her thyroid TSH was almost 50, a months ago and/or more and it came back up to 100 in Emergency Room. The patient was given 200 initial dose IV of Synthroid and advised to continue her Synthroid as prescribed. She also had seen by GI consult Dr. Gee Brumfield. The patient most of her anemia is due to her vaginal heavy menses and she does not comply with the Gynecology and she does not take her iron pills. The patient seen by GI consult Dr. Brumfield, levothyroxine was prescribed electronically, 88 mcg last time, but we will give her 100 for now and follow up as outpatient. The patient advised to follow up within a week. I explained to the father and to the mother attending with her on the bedside, the significance of compliance with medication and getting the procedure recommended none including colonoscopy and including followup with the respiratory director. Agustin Chen MD
== END 2017-03-15 17:46 | disposition home or self-care (01) | DRG 395 ==
LOC: ED 20:07 → ERH 22:37 → 5RNO 03-14 00:17
PROVIDERS: ADMIT Internal Medicine; ATTEND Internal Medicine
PROC: 30233N1 Transfusion of Nonautologous Red Blood Cells into Peripheral Vein, Percutaneous Approach (ICD-10-PCS; principal; 2017-03-14)
DX: D50.9 Iron deficiency anemia, unspecified (principal); E03.2 Hypothyroidism due to medicaments and other exogenous substances; K29.60 Other gastritis without bleeding; N92.1 Excessive and frequent menstruation with irregular cycle; Z91.19 Patient's noncompliance with other medical treatment and regimen; Z79.899 Other long term (current) drug therapy

== ENCOUNTER 2017-06-17 10:52 | Emergency (ER) | payer OTHER ==
[2017-06-17 11:06] VITALS: BMI 21.1
[2017-06-17 11:08] VITALS: RESP 18; TEMP 99.7
[2017-06-17] MEDS ORDERED: Albuterol 0.083% Inhal Sol (2.5 mg/3 mL) UD IH STA (11:42)
--- NOTE | 2017-06-17 11:46 | ED PDOC ---
Arrival/HPI - General Chief Complaint: Flu-like Symptoms Time Seen by Provider: 06/17/17 11:11 Historian: Patient - History of Present Illness Narrative History of Present Illness (Text): 06/17/17 11:42 A 36 year old female presents to the emergency department complaining of flu like symptoms for 2 days. Patient reports generalized weakness, sore throat, dry cough and runny nose. She notes a fever of 101.6 at 03:00 this morning and took Motrin. Patient denies any ear pain, nausea, vomiting, abdominal pain, chest pain, shortness of breath or any other complaints. Patient did not get the flu shot. Time/Duration: Other (2 days) Symptom Course: Worsening Quality: Other Context: Home Past Medical History - Provider Review Nursing Documentation Reviewed: Yes - Past History Past History: No Previous - Infectious Disease Hx of Infectious Diseases: None - Past Medical History Past Medical History: No Previous - Cardiac Hx Cardiac Disorders: No - Pulmonary Hx Respiratory Disorders: No - Neurological Hx Neurological Disorder: No - HEENT Hx HEENT Disorder: No - Renal Hx Renal Disorder: No - Endocrine/Metabolic Hx Endocrine Disorders: Yes (GOITER) Hx Hypothyroidism: Yes - Hematological/Oncological Hx Blood Disorders: Yes Hx Anemia: Yes (IRON INFUSIONS) - Integumentary Hx Dermatological Disorder: No - Musculoskeletal/Rheumatological Hx Musculoskeletal Disorders: No Hx Falls: No - Gastrointestinal Hx Gastrointestinal Disorders: Yes (ENDOSCOPOY 6-60-37-GASTRIC EROSION-LOST 5 LBS WITHIN ONE MONTH) - Genitourinary/Gynecological Hx Genitourinary Disorders: No - Psychiatric Hx Psychophysiologic Disorder: No Hx Anxiety: No Hx Bipolar Disorder: No Hx Depression: No Hx Emotional Abuse: No Hx Hallucinations: No Hx Panic Disorder: No Hx Post Traumatic Stress Disorder: No Hx Psychosis: No Hx Physical Abuse: No Hx Schizophrenia: No Hx Sexual Abuse: No Hx Substance Use: No - Anesthesia Hx Anesthesia Reactions: No Hx Malignant Hyperthermia: No - Suicidal Assessment Feels Threatened In Home Enviroment: No Family/Social History - Physician Review Nursing Documentation Reviewed: Yes Family/Social History: No Known Family HX Smoking Status: Never Smoked Hx Alcohol Use: No Hx Substance Use: No Hx Substance Use Treatment: No Allergies/Home Meds Allergies/Adverse Reactions: Allergies No Known Allergies Allergy (Verified 06/17/17 11:06) Home Medications: Home Meds Medication Instructions Recorded Confirmed Levothyroxine [Synthroid] 88 mcg PO DAILY 06/17/17 06/17/17 Review of Systems - Physician Review All systems were reviewed & negative as marked: Yes - Review of Systems Constitutional: Fatigue, Fevers ENT: Sore Throat, Rhinorrhea. absent: TMJ Pain Respiratory: Cough. absent: SOB, Sputum Cardiovascular: absent: Chest Pain, Palpitations Gastrointestinal: absent: Abdominal Pain, Diarrhea, Nausea, Vomiting, Appetite Changes Genitourinary Female: absent: Dysuria, Frequency, Hematuria Musculoskeletal: Myalgias. absent: Arthralgias, Back Pain, Neck Pain Skin: absent: Rash, Pruritis Neurological: Headache. absent: Dizziness Physical Exam Vital Signs Reviewed: Yes Vital Signs Temp Pulse Resp BP Pulse Ox 06/17/17 13:34 93 H 18 113/55 L 100 06/17/17 11:07 99.7 F H 102 H 18 119/75 99 Temperature: Afebrile Blood Pressure: Normal Pulse: Tachycardic Respiratory Rate: Normal Appearance: Positive for: Well-Appearing, Non-Toxic, Comfortable Pain Distress: None Mental Status: Positive for: Alert and Oriented X 3 - Systems Exam Head: Present: Atraumatic, Normocephalic Extroacular Muscles: Present: EOMI Conjunctiva: Present: Normal Ears: Present: Normal, NORMAL TM, Normal Canal. No: Erythema, TM Bulging, Fluid , TM Perf Mouth: Present: Moist Mucous Membranes Pharnyx: Present: Normal. No: ERYTHEMA, EXUDATE, TONSILS ENLARGED Nose (External): Present: Atraumatic Nose (Internal): Present: Engorged, Clear Mucous, Other (congestion) Neck: Present: Normal Range of Motion, Trachea Midline. No: Meningeal Signs Respiratory/Chest: Present: Clear to Auscultation, Good Air Exchange. No: Respiratory Distress, Accessory Muscle Use Cardiovascular: Present: Regular Rate and Rhythm, Normal S1, S2. No: Murmurs Abdomen: No: Tenderness, Distention, Peritoneal Signs, Rebound, Guarding Back: Present: Normal Inspection. No: CVA Tenderness Upper Extremity: Present: Normal Inspection. No: Cyanosis, Edema Lower Extremity: Present: Normal Inspection. No: Edema Neurological: Present: GCS=15, Speech Normal Skin: Present: Warm, Dry, Normal Color. No: Rashes Psychiatric: Present: Alert, Oriented x 3 Medical Decision Making ED Course and Treatment: 06/17/17 12:12 Patient is nontoxic well-appearing. C/o flu-like symptoms x 2 days. tylenol PO toradol IM albuterol neb cxr; no infiltrate Tamiflu po zithromax po Patient reassessment: Pt feeling better; vitals stable. discussed all results with patient. I advised follow up with primary care physician within the next 2 days. I advised increase fluids and return if symptoms worsen persist or if new symptoms develop Patient verbalizes understanding of discharge instructions and need for immediate followup. all aspects of this case were discussed the attending of record. IMPRESSION; Influenza Motrin one tablet every 6 hours as needed for pain Tamiflu: 1 capsule twice daily 5 days zithromax 1 tablet daily x 4 days. Increase fluids Followup with primary care physician the next 2 days Return if symptoms worsen persist or if new symptoms develop: Continued high fevers, dizziness, weakness, chest pain or shortness of breath vomiting/diarrhea , or if any other concerning symptoms develop 06/17/17 13:43 - RAD Interpretation Radiology Orders: 06/17/17 11:42 CHEST TWO VIEWS (PA/LAT) [RAD] Stat - Medication Orders Current Medication Orders: Discontinued Medications Acetaminophen (Tylenol 325mg Tab) 975 mg PO STAT STA Stop: 06/17/17 11:42 Last Admin: 06/17/17 12:05 Dose: 975 mg Albuterol Sulfate (Albuterol 0.083% Inhal Sheri (2.5 Mg/3 Ml) Ud) 2.5 mg IH STAT STA Stop: 06/17/17 11:43 Last Admin: 06/17/17 12:06 Dose: 2.5 mg Ketorolac Tromethamine (Toradol) 30 mg IM STAT STA Stop: 06/17/17 11:42 Last Admin: 06/17/17 12:06 Dose: 30 mg MAR Pain Assessment Document 06/17/17 12:06 GMD (Rec: 06/17/17 12:06 D [id number]) Pain Reassessment Is this a pain reassessment? No Presence of Pain Presence of Pain Yes IM Administration Charges Document 06/17/17 12:06 GMD (Rec: 06/17/17 12:06 D [id number]) Injection Site MAR Injection Site Left Deltoid Charges for Administration # of IM Administrations 1 - Scribe Statement The provider has reviewed the documentation as recorded by the Scribe Effie Pham Provider Scribe Attestation: All medical record entries made by the Scribe were at my direction and personally dictated by me. I have reviewed the chart and agree that the record accurately reflects my personal performance of the history, physical exam, medical decision making, and the department course for this patient. I have also personally directed, reviewed, and agree with the discharge instructions and disposition. Disposition/Present on Arrival - Present on Arrival Any Indicators Present on Arrival: No History of DVT/PE: No History of Uncontrolled Diabetes: No Urinary Catheter: No History of Decub. Ulcer: No History Surgical Site Infection Following: None - Disposition Have Diagnosis and Disposition been Completed?: Yes Diagnosis: Influenza, Cough Disposition: HOME/ ROUTINE Disposition Time: 13:44 Patient Plan: Discharge Condition: GOOD Discharge Instructions (ExitCare): Cough in Adults, Flu, Adult (DC) Additional Instructions: Motrin one tablet every 6 hours as needed for pain Tamiflu: 1 capsule twice daily 5 days zithromax 1 tablet daily x 4 days. Increase fluids Followup with primary care physician the next 2 days Return if symptoms worsen persist or if new symptoms develop: Continued high fevers, dizziness, weakness, chest pain or shortness of breath vomiting/diarrhea , or if any other concerning symptoms develop Prescriptions: Azithromycin [Zithromax] 250 mg PO DAILY #4 tab Ibuprofen [Motrin] 600 mg PO Q6H PRN #20 tab PRN Reason: pain/fever reduction Oseltamivir [Tamiflu] 75 mg PO BID #10 cap Referrals: Agustin Chen MD [Primary Care Provider] - Follow up with primary Forms: [facility] [facility] (Andorran), WORK NOTE
--- NOTE | 2017-06-17 12:34 | RAD ---
HISTORY: cough/fever COMPARISON: 03/13/2017 TECHNIQUE: Chest PA and lateral FINDINGS: LUNGS: No active pulmonary disease. PLEURA: No significant pleural effusion identified. No pneumothorax apparent. CARDIOVASCULAR: Normal. OSSEOUS STRUCTURES: No significant abnormalities. VISUALIZED UPPER ABDOMEN: Normal. OTHER FINDINGS: None. IMPRESSION: No active disease.
[2017-06-17 13:37] VITALS: BP 113/55; O2SAT 100
[2017-06-17 14:05] VITALS: PULSE 83
== END 2017-06-17 14:44 | disposition home or self-care (01) ==
LOC: ED 10:52
DX: J11.1 Influenza due to unidentified influenza virus with other respiratory manifestations (principal); R05 Cough
CPT/HCPCS: 71046; 96372; 99285; J1885